=== PATIENT | male | born 2005 | race Caucasian/White ===

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

== ENCOUNTER 2025-07-11 15:33 | Emergency (ER) | payer OTHER ==
[~2025-07-11] VITALS: Ht 165.1 cm; Wt 56.7 kg
[2025-07-11 15:38] VITALS: BP 123/74; TEMP 96.9; O2SAT 100
[2025-07-11] MEDS ORDERED: HYDR-4514 PO (15:45)
[2025-07-12] MEDS ORDERED: BACT400T PO (12:03)
[2025-07-12] MEDS ORDERED: CELE1CAP4 PO (12:33)
== END 2025-07-11 16:44 | disposition left against medical advice (07) ==
LOC: M ED 15:33
DX: Z53.9 Procedure and treatment not carried out, unspecified reason (principal); Z88.8 Allergy status to other drugs, medicaments and biological substances

== ENCOUNTER 2025-07-11 16:58 | Emergency (ER) | payer OTHER ==
[~2025-07-11] VITALS: Ht 165.1 cm; Wt 56.0 kg
[~2025-07-11 16:58] MED LIST changes: +HYDR-4514 PO
[2025-07-11 17:56] LABS: BASO # 0.0 10^3/uL (0.0-0.2); BASO % 0.2 % (0.0-1.0); EOS # 0.1 10^3/uL (0.0-0.5); EOS % 1.3 % (0.0-3.0); LYMPH # 1.7 10^3/uL (1.5-5.0); LYMPH % 16.2 % (24.0-44.0); MONO # 0.8 10^3/uL (0.0-0.8); MONO % 7.9 % (2.0-8.0); NEUTROPHILS # 7.7 10^3/uL (1.5-8.5); NEUTROPHILS % 74.2 % (36.0-66.0); PLATELET COUNT, AUTOMATED 324 10^3/uL (150-450)
[2025-07-11 18:19] LABS: C REACTIVE PROTEIN QUANTITATIV 8.11 MG/DL (<1.0); CALCIUM LEVEL 8.9 MG/DL (8.5-10.1); CARBON DIOXIDE LEVEL 30 MMOL/L (20-31); CHLORIDE LEVEL 100 MMOL/L (98-107); CREATININE FOR GFR 0.87 MG/DL (0.70-1.30); GLOMERULAR FILTRATION RATE > 90.0 (>60); POTASSIUM SERUM 4.3 MMOL/L (3.5-5.1); SODIUM LEVEL 140 MMOL/L (136-145)
[2025-07-11] MEDS: NS (Normal Saline) 0.9% 1,000 ML IV ONE (19:06)
[2025-07-11] MEDS: KETOROLAC 30 MG/ML 1 ML VIAL IV ONE (19:06)
[2025-07-11] MEDS ORDERED: HOME MED LIST COMPLETE! XX SCH (19:40)
[2025-07-11 19:59] VITALS: BP 135/78; TEMP 97; O2SAT 100
[2025-07-12] MEDS ORDERED: BACT400T PO (12:03)
[2025-07-12] MEDS ORDERED: CELE1CAP4 PO (12:33)
== END 2025-07-11 21:30 | disposition left against medical advice (07) ==
LOC: M ED 16:58
DX: M79.642 Pain in left hand (principal); L08.9 Local infection of the skin and subcutaneous tissue, unspecified; Z53.20 Procedure and treatment not carried out because of patient's decision for unspecified reasons; Z88.6 Allergy status to analgesic agent; Z88.8 Allergy status to other drugs, medicaments and biological substances
CPT/HCPCS: 73130; 80048; 83605; 85025; 85652; 86140; 87040; 96361; 96374; 99281; 99284; J1885

== ENCOUNTER 2025-07-12 08:27 | Day surgery (SDC) | payer OTHER ==
[2025-07-12] MEDS ORDERED: GLYCOPYRROLATE INJ 0.2 MG/ML 2 ML VIAL ONE (08:28)
[2025-07-12] MEDS ORDERED: dexmedeTOMIDine (4 MCG/ML) 200 MCG/50 ML BTL ONE (08:28)
[2025-07-12] MEDS ORDERED: dexAMETHasone 4 MG/ML 1 ML VIAL ONE ×2 (08:28)
[2025-07-12] MEDS ORDERED: ACETAMINOPHEN 1000MG/100ML IV BAG ONE (08:28)
[2025-07-12] MEDS ORDERED: LIDOCAINE 2% 100 MG/5 ML SDV (FOR ANES.) ONE (08:28)
[2025-07-12] MEDS ORDERED: KETOROLAC 30 MG/ML 1 ML VIAL ONE (08:28)
[2025-07-12] MEDS ORDERED: ONDANSETRON 4MG/2ML VIAL ONE (08:28)
[2025-07-12] MEDS ORDERED: MIDAZOLAM INJ 2 MG/2 ML VIAL ONE (08:28)
[2025-07-12 08:32] VITALS: BP 117/57; TEMP 98; O2SAT 99
[2025-07-12] MEDS: VANCOMYCIN 1000MG/20ML VIAL IV ONE (10:55)
[2025-07-12] MEDS ORDERED: MORPHINE 2 MG/ML 1 ML VIAL IV PRN (11:45)
[2025-07-12] MEDS ORDERED: HYDROMORPHONE HCL 0.5 MG/0.5 ML SYRINGE IV PRN (11:45)
[2025-07-12] MEDS ORDERED: BACT400T PO (12:03)
[2025-07-12 12:31] VITALS: BP 128/79; TEMP 98.3; O2SAT 91
[2025-07-12] MEDS ORDERED: CELE1CAP4 PO (12:33)
== END 2025-07-12 12:57 | disposition home or self-care (01) ==
LOC: M MSPAV 08:27 → M SDC 08:27
PROVIDERS: ATTEND Orthopaedic Surgery
DX: L02.512 Cutaneous abscess of left hand (principal); Z86.14 Personal history of Methicillin resistant Staphylococcus aureus infection; Z88.8 Allergy status to other drugs, medicaments and biological substances
CPT/HCPCS: 11043; 87070; 87075; 87077; 87186; 87205; J0131; J0665; J1100; J1596; J1885; J2250; J2405; J3010; J3373